=== PATIENT | female | born 1970 | race Caucasian/White ===

== ENCOUNTER 2021-04-18 07:14 | Emergency (ER) | payer OTHER ==
[~2021-04-18] VITALS: Ht 152.4 cm; Wt 66.7 kg
[2021-04-18 07:16] VITALS: BP 95/74
--- NOTE | 2021-04-18 07:19 | NUR ---
Patient being evaluated by DR SHAHID at TRIAGE ROOM.
--- NOTE | 2021-04-18 07:22 | NUR ---
PATIENT AMBULATED TO BED 12.
[2021-04-18] MEDS ORDERED: DEXT1DRO4 OP (07:29)
[2021-04-18] MEDS ORDERED: VALA1TAB40 PO (07:29)
[2021-04-18] MEDS ORDERED: PRED20TA6 PO (07:29)
--- NOTE | 2021-04-18 07:35 | NUR ---
50 Y/O F BIB SPOUSE. PATIENT PRESENTS TO ED WITH DROOPING OF THE RIGHT FACE AND A HEADACHE SINCE LAST NIGHT. PT STATES HER EYE WONT CLOSE AT NIGHT AND ITS DIFFICULT TO CLOSE HER EYE. PT HAS AN INFECTION BEHIND HER LEFT EAR. DENIES N/V/D; SKIN IS PINK/WARM/DRY; AAOX4 WITH EVEN AND STEADY GAIT; LUNGS CLEAR BL; HR EVEN AND REGULAR; PT DENIES ANY FEVER, CP, SOB, OR COUGH AT THIS TIME; PATIENT STATES PAIN OF 0/10 AT THIS TIME; VSS; PATIENT POSITIONED FOR COMFORT; HOB ELEVATED; BEDRAILS UP X1; BED DOWN. ER MD MADE AWARE OF PT STATUS. HX: TRANSGEMINAL NEURALGIA, CERVICAL STENOSIS, EDMOND'S PALSY NKDA MEDS: GABAPENTIN, CARBAMAZEPINE, CYCLOBENZAPRINE
[2021-04-18 07:37] VITALS: BP 95/74
--- NOTE | 2021-04-18 07:37 | NUR ---
Patient discharged with v/s stable. Written and verbal after care instructions given and explained. Patient alert, oriented and verbalized understanding of instructions. Ambulatory with steady gait. All questions addressed prior to discharge. ID band removed. Patient advised to follow up with PMD. Rx of DEXTRAN, PREDNISONE, VALACYCLOVIR given. Patient educated on indication of medication including possible reaction and side effects. Opportunity to ask questions provided and answered. PT HAS CALM DEMEANOR, STEADY GAIT, AND ULABORED BREATHING.
== END 2021-04-18 07:37 | disposition home or self-care (01) ==
LOC: MED 07:14
DX: G81.91 Hemiplegia, unspecified affecting right dominant side (principal); G51.0 Bell's palsy
CPT/HCPCS: 99283